=== PATIENT | male | born 1950 | race Caucasian/White ===

== ENCOUNTER 2021-04-12 16:14 | Emergency (ER) | payer MEDICARE ==
[2021-04-12 18:16] LABS: HEMOGLOBIN 14.8 gm/dl (14.0-17.5); RED BLOOD COUNT 4.66 M/UL (4.20-5.50); WHITE BLOOD COUNT 6.5 K/UL (4.5-11.0)
[2021-04-12 18:46] LABS: BUN/CREATININE RATIO 23 (0-10)
[2021-04-12] MEDS ORDERED: DRAMAMINE LESS25 MG PO (22:09)
== END 2021-04-12 22:25 | disposition home or self-care (01) ==
LOC: ER1 16:14
PROVIDERS: Internal Medicine
DX: R11.2 Nausea with vomiting, unspecified (principal); R42 Dizziness and giddiness; R19.7 Diarrhea, unspecified; E11.9 Type 2 diabetes mellitus without complications; I10 Essential (primary) hypertension; Z86.16 Personal history of COVID-19
CPT/HCPCS: 70450; 71046; 80053; 82550; 82553; 83690; 83735; 83874; 84484; 85025; 93005; 99284